=== PATIENT | male | born 1975 | race American Indian/Alaskan Native ===

== ENCOUNTER 2020-09-28 11:15 | Emergency (ER) | payer SELFPAY ==
[2020-09-28] MEDS ORDERED: ASPIRIN 325 MG TAB PO ONE (11:40)
--- NOTE | 2020-09-28 12:04 | XRay Report ---
CHEST 2 VIEWS INDICATION: chest pain. COMPARISON: None. FINDINGS: Support devices: None. Heart: Within normal limits. Lungs/Pleura: No acute air space or interstitial disease. No significant pleural effusion. IMPRESSION: No acute findings. Signer Name: Jarett Ardon MD Signed: 09/28/2020 11:59 AM Workstation Name: [id number]
[2020-09-28 12:26] LABS: Hematocrit 37.4 % (35.5-45.6); Lymphocytes # (Auto) 0.8 K/mm3 (1.2-5.4); Lymphocytes % (Auto) 10.3 % (13.4-35.0); Mean Corpuscular HGB Conc 35 % (32-34); Mean Corpuscular Volume 90 fl (84-94); Monocytes # (Auto) 0.2 K/mm3 (0.0-0.8); Monocytes % (Auto) 2.2 % (0.0-7.3); Platelet Count 179 K/mm3 (140-440); Red Blood Count 4.17 M/mm3 (3.65-5.03); Red Cell Distribution Width 14.3 % (13.2-15.2)
[2020-09-28] MEDS ORDERED: FAMOTIDINE 20 MG TAB PO ONE (12:26)
[2020-09-28] MEDS ORDERED: diphenhydrAMINE 25 MG CAP PO ONE (12:26)
[2020-09-28] MEDS ORDERED: predniSONE 20 MG TAB PO ONE (12:27)
[2020-09-28] MEDS ORDERED: ALUM-MAG HYDROXIDE-SIMETHICONE 200-200-20MG/5ML ORAL LIQD 30 ML PO ONE (12:27)
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
[2020-09-28 12:48] LABS: Alanine Aminotransferase 13 units/L (7-56); Albumin 4.1 g/dL (3.9-5); BUN/Creatinine Ratio 9; Blood Urea Nitrogen 10 mg/dL (9-20); Hemolysis Index 5
[2020-09-28 16:23] VITALS: BP 127/72
--- NOTE | 2020-10-03 10:51 | Electrocardiograph Report ---
[facility] Test Date: 2020-09-28 Test Time: 11:30:00 Pat Name: RINKU MORILLO Department: Room: Gender: M Experiential Therapist: Giovanny CERVANTES RN : [id number] Requested By: YULISA BUNDY Order Number: [id number] Reading MD: Silverio Bush Measurements Intervals [place] Rate: 81 P: 67 AL: 216 QRS: 66 QRSD: 82 T: 65 QT: 348 QTc: 405 Interpretive Statements Sinus rhythm Prolonged AL interval Probable left atrial enlargement No previous ECG available for comparison Electronically Signed On 10-03-2020 10:51:04 EDT by Silverio Bush
== END 2020-09-28 16:23 | disposition home or self-care (01) ==
LOC: ED 11:15
DX: T78.40XA Allergy, unspecified, initial encounter (principal); L50.9 Urticaria, unspecified; H65.91 Unspecified nonsuppurative otitis media, right ear; R07.89 Other chest pain; Z72.89 Other problems related to lifestyle; Z79.899 Other long term (current) drug therapy; X58.XXXA Exposure to other specified factors, initial encounter
CPT/HCPCS: 36415; 71046; 80053; 83690; 83735; 84484; 85025; 93005; 99284; J7512